=== PATIENT | female | born 1945 | race Caucasian/White ===

== ENCOUNTER 2019-05-24 17:34 | Emergency (ER) | payer OTHER, MEDICAID ==
[~2019-05-24] VITALS: Ht 162.6 cm; Wt 54.8 kg
[~2019-05-24 17:34] MED LIST: CALC600T5 PO
[2019-05-24 17:40] VITALS: Ht 162.6 cm; Wt 54.8 kg
[2019-05-24 21:15] VITALS: BP 128/70; PULSE 80; RESP 20
== END 2019-05-24 21:15 | disposition home or self-care (01) ==
LOC: FTE 17:34
DX: N95.2 Postmenopausal atrophic vaginitis (principal)
CPT/HCPCS: 81001; 99284